=== PATIENT | male | born 2000 | race Caucasian/White ===

== ENCOUNTER → 2025-01-24 15:06 | Outpatient (CLI) | payer OTHER, SELFPAY ==
--- NOTE | 2025-01-24 15:08 | DI.RAD.S_ITS ---
PROCEDURE: XR LUMBAR SPINE 2-3V INDICATIONS: Lumbar pain TECHNIQUE: 3 views of the lumbar spine were acquired. COMPARISON: None. FINDINGS: Bones: 5 [id number] vertebrae are present. There is normal bony alignment. No vertebral body compression fractures. No suspicious bony lesions. Soft tissues: Overlying bowel gas pattern is normal. No suspicious soft tissue calcifications. IMPRESSION: No acute bony abnormality. Dictated by: Khadar Ireland M.D. on 01/24/2025 at 15:48 Approved by: Khadar Ireland M.D. on 01/24/2025 at 15:48
== END ==
PROVIDERS: Referring Provider Physician Assistant; Visit Provider Physician Assistant
DX: S33.5XXA Sprain of ligaments of lumbar spine, initial encounter (principal); X58.XXXA Exposure to other specified factors, initial encounter
CPT/HCPCS: 72100